=== PATIENT | male | born 1955 | race African-American/Black ===

== ENCOUNTER 2021-10-10 14:10 | Emergency (ER) | payer MEDICARE, MEDICAID ==
[~2021-10-10] VITALS: Ht 175.3 cm; Wt 64.0 kg
[2021-10-10 14:38] VITALS: BP 146/87
[2021-10-10] MEDS ORDERED: SODIUM CHLORIDE 0.9% 1,000 ML IV ONE (14:45)
== END 2021-10-10 14:50 | disposition left against medical advice (07) ==
LOC: ER 14:29
DX: R55 Syncope and collapse (principal); I10 Essential (primary) hypertension; Z88.0 Allergy status to penicillin
CPT/HCPCS: 99283; J7030